=== PATIENT | male | born 1990 | race American Indian/Alaskan Native ===

== ENCOUNTER 2022-02-22 16:32 | Emergency (ER) | payer OTHER ==
[~2022-02-22] VITALS: Ht 157.5 cm; Wt 136.1 kg
[~2022-02-22 16:32] MED LIST: CYCLOBENZAPRINE5 MG PO; IBUPROFEN600 MG PO; NORCO 5-325 TA1 EACH PO; ULTRAM50 MG PO
[2022-02-22] MEDS ORDERED: AMOX TR-K CLV1 EAC1 PO (18:05)
== END 2022-02-22 19:00 | disposition home or self-care (01) ==
LOC: ED 16:32
DX: S91.051A Open bite, right ankle, initial encounter (principal); S91.011A Laceration without foreign body, right ankle, initial encounter; I10 Essential (primary) hypertension; Z79.899 Other long term (current) drug therapy; W54.0XXA Bitten by dog, initial encounter; Z23 Encounter for immunization
CPT/HCPCS: 12002; 73610; 90471; 90715; 99283-25